=== PATIENT | female | born 1990 | race Caucasian/White ===

== ENCOUNTER → 2024-03-31 | Outpatient (CLI) | payer OTHER, SELFPAY ==
--- NOTE | 2024-03-31 13:35 | RAD_ITS ---
STUDY: X-RAY - LUMBAR SPINE REASON FOR EXAM: Female, 33 years old. Back pain. TECHNIQUE: 2 view(s) of the lumbar spine were obtained. COMPARISON: None FINDINGS: Normal lumbar lordosis. Mild levoscoliosis. Normal alignment of the vertebrae. Normal vertebral bodies and endplates. Normal disc space heights. Normal soft tissues. RAD/Lumbar Spine 2 or 3 Views IMPRESSION: Mild levoscoliosis. No other abnormality. Electronically Signed: Mir Yun MD at 15:24 EDT ,
[2024-03-31 14:35] LABS: Erythrocyte Sedimentation Rate 3 mm/hr (0-30)
[2024-03-31 15:19] LABS: CRP < 2.90 mg/L (0.0-3.0); Free T3 2.6 pg/mL (2.18-3.98); LDH 164 U/L (84-246); Magnesium 2.1 mg/dL (1.6-2.6); T4 Free Direct 1.15 ng/dL (0.76-1.46); Thyroid Stim Hormone (TSH) 1.51 uIU/mL (0.358-3.74)
[2024-04-05 16:09] LABS: ACCA 0 units (0-90); ALCA 14 units (0-60); AMCA 27 units (0-100); Albumin 3.6 g/dL (2.9-4.4); Alpha-1-Globulins 0.3 g/dL (0.0-0.4); Alpha-2-Globulins 0.8 g/dL (0.4-1.0); Cytoplasmic Ab (C-ANCA) <1:20 titer (Neg:<1:20); Endomysial Antibody IgA Positive (Negative); Gamma Globulin 0.8 g/dL (0.4-1.8); Immunoglobulin A 62 mg/dL (87-352); Immunoglobulin G 857 mg/dL (586-1602); Immunoglobulin M 71 mg/dL (26-217); PROEL- TOTAL PROTEIN 6.6 g/dL (6.0-8.5); Perinuclear Ab (P-ANCA) <1:20 titer (Neg:<1:20); gASCA 15 units (0-50); t-Transglutaminase IgA 74 U/mL (0-3)
[2024-04-08 07:09] LABS: Anti-Centromere B Ab <0.2 AI (0.0-0.9); Anti-Chromatin <0.2 AI (0.0-0.9); Anti-Jo <0.2 AI (0.0-0.9); Anti-Scleroderma-70 AB <0.2 AI (0.0-0.9); Anti-dsDNA Ab 1 IU/mL (0-9); Beef <0.10 kU/L (Class 0); Chocolate <0.10 kU/L (Class 0); Codfish <0.10 kU/L (Class 0); Corn <0.10 kU/L (Class 0); Egg, Whole <0.10 kU/L (Class 0); Milk (Cow) <0.10 kU/L (Class 0); Mussels <0.10 kU/L (Class 0); Peanut <0.10 kU/L (Class 0); Pork <0.10 kU/L (Class 0); RNP Ab <0.2 AI (0.0-0.9); SJOGREN'S Anti-SS-A test < 0.2 AI (0.0-0.9); SJOGREN'S Anti-SS-B test 1.2 AI (0.0-0.9); Salmon <0.10 kU/L (Class 0); Shrimp <0.10 kU/L (Class 0); Smith Ab <0.2 AI (0.0-0.9); Soybean <0.10 kU/L (Class 0); Tuna <0.10 kU/L (Class 0); Vitamin D 1,25-Dihydroxy 75.8 pg/mL (24.8-81.5); Wheat <0.10 kU/L (Class 0)
== END | disposition home or self-care (01) ==
LOC: RAD 13:34
PROVIDERS: PCP Family Medicine; Referring Provider Internal Medicine Gastroenterology; Visit Provider Internal Medicine Gastroenterology
DX: M54.9 Dorsalgia, unspecified (principal); R76.8 Other specified abnormal immunological findings in serum; Z83.79 Family history of other diseases of the digestive system
CPT/HCPCS: 36415; 72100; 82652; 82784; 83516; 83615; 83735; 84165; 84439; 84443; 84481; 85652; 86003; 86005; 86036; 86140; 86225; 86235; 86255; 86256; 86334; 86671

== ENCOUNTER → 2024-07-13 | Outpatient (CLI) | payer OTHER, SELFPAY ==
[2024-07-13 14:54] LABS: CRP < 2.90 mg/L (0.0-3.0); Free T3 2.6 pg/mL (2.18-3.98); T4 Free Direct 1.06 ng/dL (0.76-1.46)
[2024-07-13 15:58] LABS: Erythrocyte Sedimentation Rate 1 mm/hr (0-30)
[2024-07-16 15:09] LABS: Endomysial Antibody IgA Negative (Negative); Immunoglobulin A 59 mg/dL (87-352); t-Transglutaminase IgA 2 U/mL (0-3)
== END | disposition home or self-care (01) ==
LOC: LAB 13:06
PROVIDERS: PCP Family Medicine; Referring Provider Internal Medicine Gastroenterology; Visit Provider Internal Medicine Gastroenterology
DX: R76.8 Other specified abnormal immunological findings in serum (principal); K90.0 Celiac disease; Z83.79 Family history of other diseases of the digestive system
CPT/HCPCS: 36415; 82784; 83516; 83735; 84439; 84443; 84481; 85652; 86140; 86255